=== PATIENT | male | born 1985 | race Two or more races ===

== ENCOUNTER 2020-04-06 13:03 | Outpatient (CLI) | payer OTHER ==
[~2020-04-06] VITALS: Ht 177.8 cm; Wt 97.5 kg
[2020-04-06] MEDS ORDERED: PRILOSEC OTC20 MG PO (14:01)
[2020-04-06] MEDS ORDERED: FLONASE16 GM NASAL (14:02)
[2020-04-06] MEDS ORDERED: PEPCID40 MG PO (14:02)
[2020-04-06] MEDS ORDERED: NEILMED SINUS1 EACH NASAL (14:03)
[2020-04-06] MEDS ORDERED: DERMOTIC20 ML OTIC (14:03)
[2020-04-06] MEDS ORDERED: AUGMENTIN XR 11 EACH PO (14:04)
[2020-04-06] MEDS ORDERED: MEDROLPACK PO (14:04)
[2020-04-10] MEDS ORDERED: AUGMENTIN XR 11 EACH PO (10:49)
[2020-04-10] MEDS ORDERED: DERMOTIC20 ML OTIC (10:49)
== END 2020-04-06 14:28 | disposition home or self-care (01) ==
LOC: OFIC 805 13:03
PROVIDERS: ATTEND Otolaryngology
DX: K21.0 Gastro-esophageal reflux disease with esophagitis (principal); J38.4 Edema of larynx; R49.0 Dysphonia; J34.3 Hypertrophy of nasal turbinates; R09.81 Nasal congestion

== ENCOUNTER 2020-05-04 12:28 | Outpatient (CLI) | payer OTHER | END 2020-05-05 09:11 | disposition home or self-care (01) | LOC: OFIC 805 12:28 | PROVIDERS: ATTEND Otolaryngology | DX: R49.0 Dysphonia (principal); J38.4 Edema of larynx; K21.0 Gastro-esophageal reflux disease with esophagitis; J34.3 Hypertrophy of nasal turbinates; R09.81 Nasal congestion ==

== ENCOUNTER → 2020-05-04 | Outpatient (CLI) | payer OTHER ==
[~2020-05-04] MED LIST: AUGMENTIN XR 11 EACH PO; DERMOTIC20 ML OTIC; FLONASE16 GM NASAL; MEDROLPACK PO; NEILMED SINUS1 EACH NASAL; PEPCID40 MG PO; PRILOSEC OTC20 MG PO
== END | disposition home or self-care (01) ==
LOC: TOM 14:22
PROVIDERS: ATTEND Otolaryngology
DX: J32.0 Chronic maxillary sinusitis (principal)

== ENCOUNTER → 2020-05-18 | Outpatient (CLI) | payer OTHER | END | disposition home or self-care (01) | LOC: OFIC 805 09:56 | PROVIDERS: ATTEND Otolaryngology | DX: J32.8 Other chronic sinusitis (principal); L30.8 Other specified dermatitis; J38.4 Edema of larynx; K21.0 Gastro-esophageal reflux disease with esophagitis; R09.81 Nasal congestion; J34.3 Hypertrophy of nasal turbinates ==